=== PATIENT | female | born 1935 | race Caucasian/White ===

== ENCOUNTER → 2016-05-18 | Outpatient (CLI) | payer MEDICARE, OTHER ==
[~2016-05-18] MED LIST: AMIT-46 PO; CLOBETASOL; CYCL-83 PO; FOLI-40 PO; HYDR1TAB98 PO; LEVO112T39 PO; MELO-11 PO; METH2.5T33 PO; OMEP-29 PO; PRED20TA PO; ZOLP-107 PO; [UNRECOGNIZED DRUG - OTHER]
== END ==
LOC: LAB 16:33
PROVIDERS: ATTEND Internal Medicine Hematology & Oncology
DX: D80.1 Nonfamilial hypogammaglobulinemia (principal); C91.10 Chronic lymphocytic leukemia of B-cell type not having achieved remission
CPT/HCPCS: 36415; 86317; 86648; 86774; 87498

== ENCOUNTER → 2016-06-27 | Outpatient (CLI) | payer MEDICARE, OTHER | LOC: LAB 14:18 | PROVIDERS: ATTEND Internal Medicine Hematology & Oncology | DX: C91.10 Chronic lymphocytic leukemia of B-cell type not having achieved remission (principal) | CPT/HCPCS: 36415; 86317 ==